=== PATIENT | female | born 1980 | race African-American/Black ===

== ENCOUNTER 2023-04-24 13:22 | Emergency (ER) | payer BC ==
[~2023-04-24] VITALS: Ht 170.2 cm; Wt 91.0 kg
[2023-04-24 14:20] LABS: Basophils # (auto) 0 10 ^3/uL (0-0.2); Eosinophils # (auto) 0.1 10 ^3/uL (0-0.8); Lymphocytes # (auto) 1.9 10 ^3/uL (0.4-5.4); Monocytes # (auto) 0.4 10 ^3/uL (0-1.3)
[2023-04-24 14:22] LABS: Basophils % (auto) 0.4 % (0.0-2.0); Eosinophils % (auto) 1.7 % (0.0-7.0); Hematocrit 41.5 % (36.0-46.0); Hemoglobin 13.1 g/dL (12.2-16.2); Lymphocytes % (auto) 21.9 % (10.0-50.0); Mean Corpuscular Hemoglobin 24.8 pg (28.0-32.0); Mean Corpuscular Hgb Conc. 31.7 g/dL (32.0-36.0); Mean Corpuscular Volume 78.4 fL (80.0-100.0); Monocytes % (auto) 4.6 % (0.0-12.0); Neutrophils # (auto) 6.2 10 ^3/uL (1.6-8.6); Neutrophils % (auto) 71.4 % (37.0-80.0); Nucleated Red Blood Cells % 0.3 %; Red Blood Cells 5.29 10^6/uL (4.0-5.20); Red Cell Distribution Width 15.3 % (11.8-14.3); White Blood Cell 8.6 10^3/uL (4.4-10.8)
[2023-04-24 14:23] VITALS: BP 150/93; PULSE 86; RESP 18; TEMP 98.4; O2SAT 97
[2023-04-24 14:43] LABS: Albumin 3.6 g/dL (3.4-5.0)
[2023-04-24 14:46] LABS: BUN/Creatinine Ratio 19.2 (10.0-20.0); Bilirubin, Total 0.3 mg/dL (0.2-1.0); Total Protein 7.4 g/dL (6.4-8.2)
[2023-04-24 15:24] LABS: Urine Bacteria FEW /hpf (None Seen); Urine Blood 2+ /uL (Negative); Urine Mucus FEW (None Seen); Urine WBC 4 /hpf (0 - 5)
[2023-04-24] MEDS ORDERED: KETOROLAC TROMETH 60MG/2ML VIAL IM ONE (15:45)
[2023-04-24] MEDS ORDERED: IBUP-1456 PO (15:56)
== END 2023-04-24 16:00 | disposition home or self-care (01) ==
LOC: ER 13:22
DX: D25.9 Leiomyoma of uterus, unspecified (principal)
CPT/HCPCS: 36415; 76856; 80053; 81001; 81025; 83690; 85025; 96372; 99285; J1885

== ENCOUNTER 2025-08-27 08:31 | Emergency (ER) | payer BC, OTHER ==
[~2025-08-27] VITALS: Ht 167.6 cm; Wt 100.9 kg
[~2025-08-27 08:31] MED LIST: IBUP-1456 PO
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
[2025-08-27] MEDS ORDERED: IBU600T PO (10:05)
--- NOTE | 2025-08-27 10:37 | DVH ---
CLINICAL INDICATION: pain TECHNIQUE: 3 radiographic views of the right shoulder were obtained. Comparison: None FINDINGS/IMPRESSION: Normal bony alignment. No fracture or dislocation. Acromioclavicular joint appears to be in normal alignment. Radiographic findings suggest some deformity to the greater tuberosity. Correlate clinically for history of dislocation. This may represent a subtle hill-Sachs deformity. If these findings are present consider MRI of the shoulder.
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
[2025-08-27 12:10] VITALS: BP 140/88; PULSE 83; RESP 18; TEMP 98.2; O2SAT 98
== END 2025-08-27 12:14 | disposition home or self-care (01) ==
LOC: ER 08:31
DX: M79.18 Myalgia, other site (principal); V89.2XXA Person injured in unspecified motor-vehicle accident, traffic, initial encounter; Y93.89 Activity, other specified; Y92.410 Unspecified street and highway as the place of occurrence of the external cause; Y99.8 Other external cause status
CPT/HCPCS: 72040; 72070; 73030